=== PATIENT | male | born 1950 | race African-American/Black ===

== ENCOUNTER 2016-09-22 08:54 | Emergency (ER) | payer OTHER ==
[~2016-09-22] VITALS: Ht 175.3 cm; Wt 67.2 kg
[~2016-09-22 08:54] MED LIST: AMLODIPINE BESY10 MG PO; DILANTIN100 MG PO; HYDRALAZINE HCL50 MG PO; KEPPRA1000 MG PO; LISINOPRIL40 MG PO; LO-DOSE ASPIRIN81 M2 PO; ZOCOR20 MG PO
[2016-09-22 10:01] LABS: EOSINOPHIL (%) 0.5 % (0-5); HEMATOCRIT 38.7 % (38.0-50.0); IMMATURE GRANULOCYTE (%) 0.2 % (0.0-0.7); INSTRUMENT ABS NEUTROPHIL CT 4.5 K/uL; LYMPHOCYTE COUNT 0.7 K/uL (1.0-2.8); MCH 26.8 PG (29.0-34.0); MCV 83.6 FL (86-99); MEAN PLAT.VOLUME 10.7 uM^3 (9.0-12.4); MONOCYTE (%) 9.5 % (3-12); MONOCYTE COUNT 0.6 K/uL (0-0.8); NEUTROPHIL (%) 77.8 % (45-76); NEUTROPHIL COUNT 4.5 K/uL (1.8-6.4); PLATELET COUNT 136 K/uL (156-360); RBC DIS.WIDTH-CV 11.9 % (11.8-14.6); RBC DIS.WIDTH-SD 35.9 % (39-53); RED BLOOD COUNT 4.63 M/uL (4.00-5.50); WHITE BLOOD COUNT 5.8 K/uL (4.1-10.2)
[2016-09-22 10:13] LABS: CHLORIDE 107 mEq/L (99-109); POTASSIUM 3.8 mEq/L (3.7-5.4); SODIUM 140 mEq/L (136-147)
[2016-09-22 10:15] LABS: GLUCOSE 124 mg/dL (70-99)
[2016-09-22 10:16] LABS: ANION GAP 7 MEQ/L (2-14)
[2016-09-22 10:17] LABS: TOTAL BILIRUBIN 0.5 mg/dL (0.0-1.0)
[2016-09-22 10:19] LABS: ALKALINE PHOSPHATASE 207 IU/L (3-129); GFR ESTIMATE (CALCULATED) 39 mL/min/
[2016-09-22 10:20] LABS: UREA NITROGEN (BUN) 32 mg/dL (9-23)
[2016-09-22 10:28] LABS: TROP-I INTERPRETATION NEGATIVE; TROPONIN-I 0.01 ng/mL (0.0-0.30)
[2016-09-22 10:37] LABS: INTER. NORMALIZED RATIO 1.1; PROTHROMBIN TIME 10.8 (9.2-11.2); PTT 27.7 (25-32)
[2016-09-22 10:37] LABS: POINT-OF-CARE METER ID UU14100415
[2016-09-22 12:23] LABS: ADD MIUA? YES; BILIRUBIN NEGATIVE; BLOOD SMALL; COLOR COLORLESS ((YELLOW)); GLUCOSE (STRIP) NEGATIVE; KETONES NEGATIVE; LEUKOCYTES NEGATIVE; NITRITE NEGATIVE; PROTEIN (STRIP) 30; SPECIFIC GRAVITY 1.006 (1.000-1.030); UROBILINOGEN 0.2 MG/DL (0.2-1.0)
[2016-09-22 12:29] LABS: BACTERIA RARE /HPF; EPITHELIAL CELLS NONE SEEN /HPF; MUCUS NONE SEEN /LPF; RED BLOOD CELLS 0-5 /HPF (0-5); WHITE BLOOD CELLS 0-5 /HPF (0-5)
[2016-09-22 14:34] VITALS: BP 130/81
== END 2016-09-22 14:52 | disposition short-term general hospital (02) ==
LOC: EME 08:54
PROVIDERS: Emergency Medicine
DX: G40.909 Epilepsy, unspecified, not intractable, without status epilepticus (principal); I10 Essential (primary) hypertension
CPT/HCPCS: 70450; 71010; 80053; 80185; 81003; 82948; 84484; 85025; 85610; 85730; 87086; 93005; 99281; 99285; J1165; J1953; J2060; J2250; J7050